=== PATIENT | female | born 1935 | race Caucasian/White ===

== ENCOUNTER → 2016-09-26 | Outpatient (CLI) | payer OTHER, BC ==
[~2016-09-26] MED LIST: ACETAMINOPHEN325 M1 PO; ACYCLOVIR 400400 MG PO; ADVAIR 250-501 EACH INH; ALLOPURINOL 10100 M1 PO; ALLOPURINOL 30300 M1 PO; ASPIRIN325 PO; AUGMENTIN 875875 MG PO; CODITUSS DM SY473 ML PO; COZAAR 25 MG TA25 M1 PO; DEXAMETHASONE4 MG PO; DILTIAZEM 24HR180 M1 PO; MUCINEX600 MG PO; MULTI VITAMIN1 EACH PO; OMEGA 3 1,0001 EACH PO; PRAVASTATIN SOD20 MG PO; PREDNISONE 10 M10 M1 PO; PROAIR HFA8.5 GM INH; RESTORIL7.5 MG PO; REVLIMID25 MG PO; TESSALON PERLE100 MG PO; TOPROL XL25 MG PO; VALSARTAN-HCTZ1 EAC3 PO; VITAMIN B12-FO1 EAC1 PO; VITAMIN D31000 UNIT PO; VITAMINC500 PO
== END ==
LOC: RAD 10:54
DX: C90.00 Multiple myeloma not having achieved remission (principal)

== ENCOUNTER → 2016-12-27 | Outpatient (CLI) | payer OTHER, BC | LOC: ULTRA 13:40 | DX: C90.00 Multiple myeloma not having achieved remission (principal) ==

== ENCOUNTER 2017-03-03 12:11 | Inpatient (IN) | payer OTHER, BC ==
[~2017-03-03] VITALS: Ht 167.6 cm; Wt 46.3 kg
--- NOTE | ~2017-03-03 | EEG ---
[facility] [place] [address] ELECTROENCEPHALOGRAM Name: LUIS DANIEL THOMAS Room #: 362-P [facility] IN M.R.#: [id number] Admission: 03/03/17 Attend Phys: Lucien Curtis Discharge: 03/05/17 Date of : 35 Report #: [id number] THIS REPORT FOR: //name// CC: Caitlyn Robledo DATE OF SERVICE: 03/04/2017 This patient is being evaluated for altered mental status. EEG was done by placing the electrodes by standard 10/20 system of electrode placement. Both referential and sequential montages were used for recording. Background activity in this patient's EEG is about 9-10 Hz and 40 microvolt. Photic stimulation is unremarkable. This patient goes to sleep that is associated with bilateral slowing and vertex sharp waves on both sides. Throughout the record, no active epileptiform activity was noticed. IMPRESSION: This patient's EEG demonstrate mild intermixed slowing. That is a nonspecific abnormality, which can occur with drowsiness, dementia, effect of psychotropic medication, etc. Clinical correlation is recommended. Thank you very much for this referral. <ELECTRONICALLY SIGNED> By: David Carpenter MD 03/11/17 1727 0744 0815 David Carpenter MD /nt
--- NOTE | ~2017-03-03 | EKG ---
[address] [address] ELECTROCARDIOGRAM REPORT Name: LUIS DANIEL THOMAS Room #: 362-P ADM IN M.R.#: [id number] Admission: 03/03/17 Attend Phys: Willam Robledo MD Discharge: Date of : 35 Report #: [id number] THIS REPORT FOR: //name// 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
--- NOTE | ~2017-03-03 | HC ---
[facility] [place] [address] CONSULTATION Name: LUIS DANIEL THOMAS Room #: 362-P ADM IN M.R.#: [id number] Admission: 03/03/17 Attend Phys: Willam Robledo MD Discharge: Date of : 35 Report #: [id number] THIS REPORT FOR: //name// CC: Caitlyn Robledo DATE OF SERVICE: 03/04/2017 HISTORY OF PRESENT ILLNESS: The patient is an 81-year-old female with history of multiple myeloma, 5 prior CVAs, some dementia, nevertheless still living at home in the community with her daughter checking in on her daily. She was noted to have worsening unsteadiness, was admitted and noted to have a recent subacute infarct medial left occipital area. She has had a functional decline and has noted balance issues per the daughter. She was seen by Hematology with her multiple myeloma and the plan is to hold any chemotherapy for now. We are seeing her in rehabilitation medicine consultation. PAST MEDICAL HISTORY: Includes multiple myeloma, hypertension, dementia, recent urinary tract infections, spinal stenosis, CVA/TIA x 5. She is noted to have back pain and apparently is to have a facet injection and followed with the pain clinic. She has history of cataracts, tonsillectomy. ALLERGIES: No known drug allergies. MEDICATIONS: Please see the full medication listing. HABITS: Tobacco: Less than half pack per day, quit greater than a year ago. No history of alcohol abuse. SOCIAL HISTORY: House, alone. Daughter checks in on her daily. She does have a cane, but she does not typically use. Daughter is considering getting a leave of absence in order to be more closely involved with the patient at home. REVIEW OF SYSTEMS: Did not offer any current complaints of chest pain, shortness of breath or abdominal discomfort. PHYSICAL EXAMINATION: GENERAL: An 81-year-old right-handed -Dominican female in no obvious distress. VITAL SIGNS: Last recorded temperature 97.9, pulse 63, respirations 20, blood pressure 101/50. The patient is alert, pleasant. HEENT: Appeared to be benign. NEUROLOGIC: Cranial nerves grossly intact. Facies are symmetric. No obvious nystagmus. EXTREMITIES: She has functional range of motion of both [place] [address] CONSULTATION Name: LUIS DANIEL THOMAS Room #: 362-P [facility] IN .R.#: [id number] Admission: 03/03/17 Attend Phys: Willam Robledo MD Discharge: Date of : 35 Report #: [id number] may have some mild decreased [id number] left upper extremity. I would grade her strength at 4 to 4-/5. Lower extremities, no focal calf swelling. Strength is probably a grade 4 to 4-. She did fairly well with [id number]. ASSESSMENT: An 81-year-old right-handed female with the following problems: 1. Recent subacute infarct, left medial occipital. 2. History of 5 prior TIAs versus CVAs. 3. Multiple myeloma. 4. History of premorbid dementia, nevertheless living in the community. 5. Chronic kidney disease. 6. History of chronic low back pain with extensive degenerative arthritis and outpatient followup with pain management facet injection pending insurance approval. 7. Thrombocytopenia. 8. History of some chronic home oxygen use. 9. Recent admissions for acute mental status secondary to UTI and dehydration. PLAN: Therapy evaluations are underway. We will be glad to follow regarding rehab therapy needs as she further medically stabilizes. Thank you for asking us to assist in this patient's care. By: [id number] [id number] Tony Gtz MD /PMT
[~2017-03-03 12:11] MED LIST changes: +ARICEPT 5 MG TAB5 MG PO; +DEXAMETHASONE 44 M1 PO; +EFFEXOR XR37.5 MG PO; +FISH OIL 1,001000 M2 PO; +KEFLEX500 M1 PO; +LIPITOR 20 MG T20 M1 PO; +METOPROLOL SUCC50 MG PO; +OXYCODONE-ACET1 EACH PO; +PERCOCET PO; +PROAIR HFA8.5 GM NASAL; +REMERON15 MG PO; +VOLTAREN GEL 1100 G1 TOP; +ZOMETA4 MG/5 ML IV; +ZYPREXA2.5 MG PO
[2017-03-03 12:19] VITALS: BP 96/68
[2017-03-03 12:36] LABS: MCHC 31.7 g/dL (28.0-37.0); WBC 5.1 thou/uL (4.0-11.0)
[2017-03-03 12:38] LABS: HEMATOCRIT 31.9 % (37.0-47.0); HEMOGLOBIN 10.1 gm/dL (12.0-15.0); MCH 28.6 pg (26.0-34.0); MCV 90.2 fL (80.0-100.0); RBC 3.54 mil/uL (4.20-5.00); RDW 15.5 % (10.5-14.5)
[2017-03-03 12:40] LABS: MANUAL DIFF YES
[2017-03-03 12:44] LABS: CALCIUM 9.4 mg/dL (8.5-10.1); CREATININE 1.3 mg/dL (0.6-1.0); POTASSIUM 3.4 mmol/L (3.5-5.1)
[2017-03-03 13:25] LABS: ABSOLUTE NEUTROPHILS 3.2 thou/uL (1.4-8.2); TOTAL CELL COUNT 100
[2017-03-03 13:26] LABS: PLATELET COUNT 78 thou/uL (150-400)
[2017-03-03 13:43] LABS: URINE BILIRUBIN NEGATIVE (Negative); URINE BLOOD TRACE (Negative); URINE COLOR YELLOW; URINE GLUCOSE-RANDOM* NEGATIVE (Negative); URINE KETONES NEGATIVE (Negative); URINE NITRITE NEGATIVE (Negative); URINE PROTEIN (DIPSTICK) 2+ (Negative); URINE SPECIFIC GRAVITY 1.025 (1.003-1.035); URINE UROBILINOGEN 0.2 E.U./dl (0.2-1.0)
[2017-03-03 13:48] LABS: BACTERIA 1-9 Few /HPF (None Seen); SQUAMOUS 0-3 Few /LPF (0-3); URINE RBC 0-2 Rare /HPF (0-2); URINE WBC 0-5 Rare /HPF (0-5)
[2017-03-03 13:49] LABS: AMORPHOUS URATES Few /LPF (None Seen); CASTS None Seen /LPF (None Seen)
[2017-03-03 16:25] VITALS: BP 90/65
[2017-03-03 17:17] VITALS: BP 89/53
[2017-03-03 17:59] LABS: CHOLESTEROL 179 mg/dL (<200); HDL CHOLESTEROL 74 mg/dL (>40); LDL CHOLESTEROL 81 mg/dL (<100); TC:HDL 2.4 Ratio (Not establshd); TRIGLYCERIDE 123 mg/dL (<150); VLDL 25 mg/dL (<40)
[2017-03-03 18:30] VITALS: BP 86/61
[2017-03-03 20:00] VITALS: BP 95/69
[2017-03-04 00:25] VITALS: BP 81/53
[2017-03-04 04:00] VITALS: BP 108/71
[2017-03-04 04:06] LABS: GLYCOHEMOGLOBIN (HGB A1C) 4.9 % (4.8-5.6)
[2017-03-04 05:53] LABS: HEMOGLOBIN 8.2 gm/dL (12.0-15.0); MCH 28.5 pg (26.0-34.0); MCHC 31.5 g/dL (28.0-37.0); MCV 90.5 fL (80.0-100.0); RBC 2.87 mil/uL (4.20-5.00); RDW 15.7 % (10.5-14.5); WBC 3.6 thou/uL (4.0-11.0)
[2017-03-04 05:58] LABS: MANUAL DIFF YES
[2017-03-04 05:59] LABS: PLATELET COUNT 57 thou/uL (150-400)
[2017-03-04 06:14] LABS: CALCIUM 8.2 mg/dL (8.5-10.1); CREATININE 1.1 mg/dL (0.6-1.0); MAGNESIUM 1.7 mg/dL (1.8-2.4); POTASSIUM 3.7 mmol/L (3.5-5.1)
[2017-03-04 07:51] VITALS: BP 101/50
[2017-03-04 08:18] LABS: ABSOLUTE NEUTROPHILS 3.4 thou/uL (1.4-8.2); ANISOCYTOSIS 1+; HYPOCHROMASIA 1+; OVALOCYTES OCCASIONAL; POIKILOCYTOSIS SLIGHT; TOTAL CELL COUNT 100
[2017-03-04 08:19] LABS: LARGE PLATELETS OCCASIONAL
[2017-03-04 10:41] LABS: FOLIC ACID 12.3 ng/mL (8.6-58.9)
[2017-03-04 11:43] VITALS: BP 91/62
[2017-03-04 15:36] VITALS: BP 104/67
[2017-03-04 20:00] VITALS: BP 102/66
[2017-03-05 03:50] VITALS: BP 100/70
[2017-03-05 05:48] LABS: CALCIUM 7.9 mg/dL (8.5-10.1); MAGNESIUM 1.8 mg/dL (1.8-2.4); POTASSIUM 3.6 mmol/L (3.5-5.1)
[2017-03-05 08:13] VITALS: BP 107/67
[2017-03-05] MEDS ORDERED: CLOPIDOGREL75 MG PO (09:29)
[2017-03-05] MEDS ORDERED: ATORVASTATIN CA10 MG PO (09:30)
[2017-03-05 11:56] VITALS: BP 95/63
== END 2017-03-05 15:04 | DRG 65 ==
LOC: ER 12:11 → 3W 13:53 → EROBS 13:53 → 3W 18:16
PROVIDERS: Emergency Medicine; Nurse Practitioner; Psychiatry & Neurology Neurology
DX: I63.9 Cerebral infarction, unspecified (principal); C90.00 Multiple myeloma not having achieved remission; E44.0 Moderate protein-calorie malnutrition; Z68.1 Body mass index [BMI] 19.9 or less, adult; F03.90 Unspecified dementia, unspecified severity, without behavioral disturbance, psychotic disturbance, mood disturbance, and anxiety; D69.6 Thrombocytopenia, unspecified; D64.9 Anemia, unspecified; N18.9 Chronic kidney disease, unspecified; M19.90 Unspecified osteoarthritis, unspecified site; M51.16 Intervertebral disc disorders with radiculopathy, lumbar region; E78.5 Hyperlipidemia, unspecified; I95.9 Hypotension, unspecified; R62.7 Adult failure to thrive; E87.6 Hypokalemia; M54.5 Low back pain; Z99.81 Dependence on supplemental oxygen; Z87.891 Personal history of nicotine dependence; Z86.73 Personal history of transient ischemic attack (TIA), and cerebral infarction without residual deficits
CPT/HCPCS: 10779

== ENCOUNTER 2017-03-05 13:39 | Inpatient (IN) | payer OTHER, BC ==
[~2017-03-05] VITALS: Ht 165.1 cm; Wt 44.0 kg
--- NOTE | ~2017-03-05 | H ---
[facility] [place] [address] HISTORY AND PHYSICAL Name: LUIS DANIEL THOMAS Room #: 503-P ADM IN M.R.#: [id number] Admission: 03/05/17 Attend Phys: Tony Gtz MD Discharge: Date of : 35 Report #: [id number] THIS REPORT FOR: //name// CC: Caitlyn Gtz DATE OF SERVICE: 03/05/2017 HISTORY OF PRESENT ILLNESS: The patient is an 81-year-old -Italian female with history of multiple myeloma, prior CVA, some premorbid dementia, nevertheless still living at home in the community with her daughter checking in on her daily. She was noted to have worsening unsteadiness and was admitted and noted to have a recent subacute infarct medial left occipital area. She was noted to have a significant partial decline with balance issues. During her hospitalization, she was seen by Hematology with her multiple myeloma and the plan was to hold off on any chemotherapy. With her significant functional decline, she was admitted for acute in-hospital inpatient rehabilitation. PAST MEDICAL HISTORY: Includes multiple myeloma, hypertension. There is a note of dementia, recent urinary tract infections, spinal stenosis, CVA with TIA x 5. She is noted to have back pain and is apparently to have a facet injection to be followed up with the pain clinic as an outpatient. She has history of cataracts and tonsillectomy. PAST SURGICAL HISTORY: As noted above. ALLERGIES: No known drug allergies. MEDICATIONS: Please see the full medication listing. HABITS: Tobacco, less than half pack per day, quit greater than a year ago. No history of alcohol abuse. SOCIAL HISTORY: Lives in a house alone. Daughter has been checking in on her daily. The patient does have a cane, but does not typically use. Daughter is considering getting a leave of absence in order to be more closely involved with the patient at home. REVIEW OF SYSTEMS: No current complaints of chest pain, shortness of breath, abdominal discomfort. PHYSICAL EXAMINATION: GENERAL: An 81-year-old handed -Italian female in no obvious distress. VITAL SIGNS: Last recorded temperature 36.3, pulse 78, respirations 17, blood pressure 103/70. The patient was seen earlier. She was sleepy. She would arouse. [facility] [address] [place] [address] HISTORY AND PHYSICAL Name: LUIS DANIEL THOMAS Room #: [facility] IN .R.#: [id number] Admission: 03/05/17 Attend Phys: Tony Gtz MD Discharge: Date of : 35 Report #: [id number] HEENT: Appeared to be benign. Facies appeared symmetric. CHEST: Sounded clear to auscultation. CARDIOVASCULAR: Regular rate and rhythm. ABDOMEN: Bowel sounds positive, nontender. GENITOURINARY AND RECTAL: Deferred. NEUROLOGIC: Functional range of motion of both upper extremities with again some mild decreased coordination. Left upper extremity: Strength of the upper body is 4-/5. Lower extremities: No focal calf swelling with strength probably grade 4 to 4-/5. In therapies: She has been contact guard for basic transfers and ambulation and has needed some assistance for ADLs. Decreased balance has been noted. IMPRESSION: An 81-year-old -Italian female with following problem list: 1. Recent subacute infarct left medial occipital. 2. History of 5 prior TIAs versus CVAs. 3. Multiple myeloma. 4. History of premorbid dementia, nevertheless living in the community. 5. Chronic kidney disease. 6. History of chronic low back pain with extensive degenerative arthritis and outpatient followup with pain management, facet injection, pending insurance approval. 7. Thrombocytopenia. 8. History of some chronic home oxygen use. 9. Balance issues with some decreased coordination and functional mobility and ADL deficits. PLAN: The patient is admitted for acute in-hospital inpatient rehabilitation. From a post-admission physician evaluation perspective, there are no relevant changes since the preadmission screening. Please see the above review of prior and current medical and functional conditions and comorbidities. Please see the patient's previous and current functional status. As far as risk of complications, the patient has multiple medical comorbidities as noted above. Initial plan of care involves the interdisciplinary acute inpatient rehabilitation program of maximizing the patient's functional independence, so that she can hopefully return back to her prior living situation. Measurable functional goals would be for her to become modified independent with transfers, mobility and ambulation. She has been using a walker, although premorbidly she was not typically using any gait aids. Goal would be for her to first be modified independent at walker level. Goal would also be to improve ADL independence as well as cognitive issues to return back to her prior living situation, so that she can return back to her home setting. Prognosis is reasonably good with estimated length of stay probably at least 7-[address] [address] HISTORY AND PHYSICAL Name: LUIS DANIEL THOMAS Room #: 503-P [facility] IN M.R.#: [id number] Admission: 03/05/17 Attend Phys: Tony Gtz MD Discharge: Date of : 35 Report #: [id number] potentially longer if warranted. Potential barriers would include the multiple medical comorbidities and decreased functional status. <ELECTRONICALLY SIGNED> By: Tony Gtz MD 03/14/17 1108 1032 1132 Tony Gtz MD /[facility]
--- NOTE | ~2017-03-05 | PLAN ---
[facility] [place] [address] REHAB UNIT PLAN OF CARE Name: LUIS DANIEL THOMAS Room #: 503-P ADM IN M.R.#: [id number] Admission: 03/05/17 Attend Phys: Tony Gtz MD Discharge: Date of : 35 Report #: [id number] THIS REPORT FOR: //name// CC: Caitlyn Gtz DATE OF SERVICE: 03/07/2017 PROGRESS NOTE/OVERALL PLAN OF CARE SUBJECTIVE: The patient is seen back today in followup. She is in no distress. Temperature 98.4, pulse 86, respirations 20, blood pressure 102/69. No focal calf swelling. Transfers are contact guard with gait contact guard 200 feet with a front-wheeled walker. She is going up and down 4 steps contact guard. In occupational therapy, she is max assist for lower body dressing. ASSESSMENT: 1. Subacute infarct left medial occipital. 2. History of 5 prior TIAs versus CVAs. 3. Multiple myeloma. 4. History of premorbid dementia. 5. Chronic kidney disease. 6. History of chronic low back pain with extensive degenerative arthritis. Followup pain clinic for said injection pending insurance approval. 7. Thrombocytopenia. 8. History of chronic home O2 oxygen use. PLAN: The overall plan of care is based on the preadmission screen, post-admission physician evaluation and information garnered from therapy assessments. 1. Estimated length of stay is probably at least 7-10 days, pending progress. 2. Medical prognosis is reasonably good. 3. Anticipated interventions includes the interdisciplinary acute inpatient rehabilitation program with the goal of maximizing the patient's functional independence, so she can hopefully return back to her prior living situation. 4. Anticipated functional outcomes would be for the patient to become modified independent with transfers, mobility issues, utilizing the walker. She will also be assessed further regarding speech therapy and cognitive deficits. It is anticipated that she will become independent with basic mobility and ADLs at the walker level and improve with her cognition, so she can return back to the home setting. 5. Discharge destination would be back to the home setting where she lives in a house alone. There is an involved daughter. 6. Expected therapy by discipline includes PT, OT and speech 1 [place] [address] REHAB UNIT PLAN OF CARE Name: LUIS DANIEL THOMAS Room #: 503-P [facility] IN [facility].#: [id number] Admission: 03/05/17 Attend Phys: Tony Gtz MD Discharge: Date of : 35 Report #: [id number] each five days a week throughout the duration of the acute inpatient rehabilitation stay. <ELECTRONICALLY SIGNED> By: Tony Gtz MD 03/14/17 1108 0916 1127 Tony Gtz MD /PMT
--- NOTE | ~2017-03-05 | HC ---
[facility] [place] [address] CONSULTATION Name: LUIS DANIEL THOMAS Room #: 503-P ADM IN M.R.#: [id number] Admission: 03/05/17 Attend Phys: Tony Gtz MD Discharge: Date of : 35 Report #: [id number] THIS REPORT FOR: //name// CC: Caitlyn Gtz DATE OF SERVICE: 03/08/2017 NEUROBEHAVIORAL STATUS EXAM ATTENDING PHYSICIAN: Tony Gtz MD PUBLICATION DISTRIBUTOR: Wilfrido Mack, PhD CLINICAL PRESENTATION: The patient is an 81-year-old -Iranian female admitted to the rehabilitation unit at [facility] with a recent subacute infarction of the left medial occipital lobe. She has a history of prior TIAs/CVAs. Her medical condition includes multiple myeloma, history of premorbid dementia, chronic kidney disease, history of chronic low back pain with extensive degenerative arthritis and outpatient pain management, thrombocytopenia, history of chronic home oxygen use and balance issues with decreased coordination and functional mobility and ADL deficits. A complete description of her medical condition and history can be found in her medical record. Neuropsychological consultation was requested to provide assistance in the assessment of cognitive and emotional status and to provide services as needed. Prior to this most recent admission, the patient was living in a house alone. She has a daughter that has been checking on her daily. The patient reports shortness of breath is the main reason for her hospitalization. She has difficulty with acknowledging the severity of cognitive deficits. She is not completely certain of the condition for which she was admitted for treatment. She does not report a treatment for depression or anxiety. She denies a history of alcohol/drug abuse. The patient indicates that she was driving and independent with basic and instrumental activities of daily living prior to her admission. She currently reports difficulty with appetite, energy level with fatigue. She does not report difficulty with concentration or word finding. Subtle difficulty with memory is acknowledged. Her performance on the MMSE 2 brief version was extremely low with a raw score of 11 of 16. The MMSE 2 standard version was extremely low with a raw score of 17 of 30. The patient was 3/3 for initial registration, 3/5 for orientation to time and 5/[address]. She was 0/3 for immediate recall of 3 items after a brief time delay and distraction. Her performance on the MMSE 2 standard version was extremely low with a raw [facility] [address] [place] [address] CONSULTATION Name: LUIS DANIEL THOMAS Room #: 503-P [facility] IN .R.#: [id number] Admission: 03/05/17 Attend Phys: Tony Gtz MD Discharge: Date of : 35 Report #: [id number] score 19 of 30. She was 0/5 for serial sevens, 2/2 for naming, 1/1 for repetition. She was 3/3 for auditory comprehension. She could read and follow a single command. The patient was unable to copy a simple geometric design. She could write a sentence. The patient was unable to draw a clock and set the hands at a designated time. Severe deficits are noted in verbal fluency. Letter fluency was a raw score of 3, which is extremely low. Category fluency was a raw score of 15, which is extremely low. Total verbal fluency was a raw score of 18, which is extremely poor performance. The patient is having difficulty with thought organization and verbal expression. Her initiation will be reduced in higher level executive functioning impaired. DIAGNOSTIC IMPRESSION: Major neurocognitive disorder (dementia), unspecified, without behavior disorder-moderate severity. RECOMMENDATIONS: The patient will require 24-hour care to maintain safety. Deficits with immediate recall, sustained concentration and higher level executive functioning place her at a great safety risk. A continued treatment program for dementia that includes the use of medication to support cognition. Her daughter will most likely need to remain with the patient to provide the adequate services that are necessary. The patient is lacking insight into the severity of her deficits, therefore, placing her at increased safety risk. Thank you very much for allowing me to provide the consultation on this patient. By: 1402 1538 Wilfrido Mack, PhD /nt
[~2017-03-05 13:39] MED LIST changes: +ATORVASTATIN CA10 MG PO; +CLOPIDOGREL75 MG PO
[2017-03-05 15:25] VITALS: BP 123/79
[2017-03-05 15:33] VITALS: BP 123/79
[2017-03-05 19:36] VITALS: BP 103/70
[2017-03-06 08:30] VITALS: BP 102/69
[2017-03-06 19:35] VITALS: BP 98/54
[2017-03-07 05:46] LABS: HEMATOCRIT 24.6 % (37.0-47.0); HEMOGLOBIN 7.9 gm/dL (12.0-15.0); MCH 28.7 pg (26.0-34.0); MCV 89.6 fL (80.0-100.0); RBC 2.74 mil/uL (4.20-5.00); RDW 15.7 % (10.5-14.5); WBC 3.2 thou/uL (4.0-11.0)
[2017-03-07 06:01] LABS: CALCIUM 7.5 mg/dL (8.5-10.1); CREATININE 0.9 mg/dL (0.6-1.0)
[2017-03-07 06:04] LABS: POTASSIUM 2.9 mmol/L (3.5-5.1)
[2017-03-07 07:15] VITALS: BP 110/59
[2017-03-07 19:28] VITALS: BP 117/75
[2017-03-08 09:23] VITALS: BP 114/79
[2017-03-08 19:10] VITALS: BP 105/70
[2017-03-09 08:00] VITALS: BP 100/70
[2017-03-09 19:40] VITALS: BP 108/77
[2017-03-10 07:30] VITALS: BP 113/84
[2017-03-10 09:53] LABS: HEMATOCRIT 29.2 % (37.0-47.0); HEMOGLOBIN 9.1 gm/dL (12.0-15.0); MCH 28.8 pg (26.0-34.0); MCHC 31.3 g/dL (28.0-37.0); MCV 92.2 fL (80.0-100.0); RBC 3.17 mil/uL (4.20-5.00); RDW 17.3 % (10.5-14.5); WBC 3.5 thou/uL (4.0-11.0)
[2017-03-10 09:54] LABS: MANUAL DIFF YES
[2017-03-10 10:02] LABS: ALBUMIN 2.9 g/dL (3.4-5.0); CREATININE 0.8 mg/dL (0.6-1.0); MAGNESIUM 1.4 mg/dL (1.8-2.4); POTASSIUM 3.1 mmol/L (3.5-5.1); TOTAL BILIRUBIN 0.9 mg/dL (<0.1-1.0); TOTAL PROTEIN 5.7 g/dL (6.4-8.2)
[2017-03-10 10:29] LABS: ABSOLUTE NEUTROPHILS 2.4 thou/uL (1.4-8.2); ANISOCYTOSIS 1+; PLATELET COUNT 94 thou/uL (150-400); PLATELET ESTIMATE DECREASED; TOTAL CELL COUNT 100
[2017-03-10 20:00] VITALS: BP 97/69
[2017-03-11 06:31] LABS: CALCIUM 7.9 mg/dL (8.5-10.1); CREATININE 0.8 mg/dL (0.6-1.0); MAGNESIUM 1.5 mg/dL (1.8-2.4); POTASSIUM 3.9 mmol/L (3.5-5.1)
[2017-03-11 08:00] VITALS: BP 116/76
[2017-03-11 20:00] VITALS: BP 86/62
[2017-03-12 07:15] VITALS: BP 97/68
[2017-03-12 19:40] VITALS: BP 85/55
[2017-03-13 05:14] LABS: HEMATOCRIT 24.7 % (37.0-47.0); HEMOGLOBIN 7.8 gm/dL (12.0-15.0); MCH 29.1 pg (26.0-34.0); MCHC 31.7 g/dL (28.0-37.0); MCV 91.9 fL (80.0-100.0); RBC 2.69 mil/uL (4.20-5.00); RDW 18.3 % (10.5-14.5); WBC 3.7 thou/uL (4.0-11.0)
[2017-03-13 05:17] LABS: CALCIUM 8.3 mg/dL (8.5-10.1); CREATININE 0.9 mg/dL (0.6-1.0); MAGNESIUM 1.7 mg/dL (1.8-2.4); POTASSIUM 3.3 mmol/L (3.5-5.1)
[2017-03-13 08:00] VITALS: BP 95/66
[2017-03-13 19:45] VITALS: BP 92/63
[2017-03-14 06:11] LABS: HEMATOCRIT 23.9 % (37.0-47.0); HEMOGLOBIN 7.7 gm/dL (12.0-15.0); MCH 29.6 pg (26.0-34.0); MCHC 32.3 g/dL (28.0-37.0); MCV 91.6 fL (80.0-100.0); PLATELET COUNT 96 thou/uL (150-400); RBC 2.61 mil/uL (4.20-5.00); RDW 19.3 % (10.5-14.5); WBC 3.1 thou/uL (4.0-11.0)
[2017-03-14 06:18] LABS: MANUAL DIFF YES
[2017-03-14 06:23] LABS: CALCIUM 8.6 mg/dL (8.5-10.1); CREATININE 0.9 mg/dL (0.6-1.0); MAGNESIUM 1.7 mg/dL (1.8-2.4); POTASSIUM 4.1 mmol/L (3.5-5.1)
[2017-03-14 08:13] LABS: ABSOLUTE NEUTROPHILS 2.4 thou/uL (1.4-8.2); TOTAL CELL COUNT 100
[2017-03-14 08:14] LABS: ANISOCYTOSIS 2+; OVALOCYTES 1+
[2017-03-14 08:15] LABS: POLYCHROMASIA OCCASIONAL
[2017-03-14 09:00] VITALS: BP 96/67
[2017-03-14 09:16] LABS: % SATURATION 17 % (20-39); IRON 41 ug/dL (50-170); TIBC 242 ug/dL (250-450); UIBC 201 ug/dL
[2017-03-14 19:18] VITALS: BP 90/63
[2017-03-15 05:34] LABS: ABSOLUTE RETIC COUNT 0.0605 10^6/uL; HEMATOCRIT 22.6 % (37.0-47.0); HEMOGLOBIN 7.2 gm/dL (12.0-15.0); MCH 29.8 pg (26.0-34.0); MCV 93.2 fL (80.0-100.0); OBSERVED RETIC COUNT 2.49 % (0.6-2.6); RBC 2.43 mil/uL (4.20-5.00); RDW 21.2 % (10.5-14.5); WBC 4.4 thou/uL (4.0-11.0)
[2017-03-15 08:35] VITALS: BP 96/60
[2017-03-15 19:46] VITALS: BP 95/68
[2017-03-16 02:38] LABS: HEMATOCRIT 23.3 % (37.0-47.0); HEMOGLOBIN 7.3 gm/dL (12.0-15.0); MCH 29.5 pg (26.0-34.0); MCHC 31.2 g/dL (28.0-37.0); MCV 94.7 fL (80.0-100.0); PLATELET COUNT 91 thou/uL (150-400); RBC 2.46 mil/uL (4.20-5.00); RDW 22.2 % (10.5-14.5); WBC 4.9 thou/uL (4.0-11.0)
[2017-03-16 02:42] LABS: MANUAL DIFF YES
[2017-03-16 03:35] LABS: ABSOLUTE NEUTROPHILS 3.2 thou/uL (1.4-8.2); ANISOCYTOSIS 3+; MACROCYTES 1+; NUCLEATED RBCS 8 /100WBC; POLYCHROMASIA OCCASIONAL; TOTAL CELL COUNT 100
[2017-03-16 08:00] VITALS: BP 113/79
[2017-03-16 19:36] VITALS: BP 90/61
[2017-03-17 08:00] VITALS: BP 109/76
[2017-03-17] MEDS ORDERED: MAGOX 400400 MG PO (10:55)
[2017-03-17] MEDS ORDERED: IRON325 PO (10:55)
[2017-03-17] MEDS ORDERED: MEGESTROL40 MG/1 M1 PO (10:55)
[2017-03-17] MEDS ORDERED: PROCRIT20000 UNIT SUBQ (10:55)
[2017-03-17] MEDS ORDERED: OXYBUTYNIN 5 MG5 M2 PO (10:55)
[2017-03-17] MEDS ORDERED: METOPROLOL SUCC25 M1 PO ×2 (10:55→11:59)
[2017-03-17] MEDS ORDERED: COLACE100 MG PO (10:55)
[2017-03-17] MEDS ORDERED: PROTONIX40 M1 PO (10:55)
[2017-03-17 14:12] VITALS: BP 109/76
[2017-03-17 15:29] VITALS: BP 109/76
[2017-03-17 20:40] VITALS: BP 91/63
[2017-03-18 04:28] LABS: ALBUMIN 2.4 g/dL (3.4-5.0); CALCIUM 8.4 mg/dL (8.5-10.1); MAGNESIUM 1.6 mg/dL (1.8-2.4); POTASSIUM 3.4 mmol/L (3.5-5.1); TOTAL BILIRUBIN 0.7 mg/dL (<0.1-1.0); TOTAL PROTEIN 4.6 g/dL (6.4-8.2)
[2017-03-18 07:04] VITALS: BP 105/69
== END 2017-03-18 13:23 | disposition home health service (06) | DRG 64 ==
LOC: ENTRNSPT 03-18 12:45 → EDTRNSPTSTS 03-18 12:47
PROVIDERS: Internal Medicine Endocrinology, Diabetes & Metabolism; Internal Medicine Hematology & Oncology; Nurse Practitioner; Physical Medicine & Rehabilitation; Registered Nurse
DX: I63.9 Cerebral infarction, unspecified (principal); E43 Unspecified severe protein-calorie malnutrition; C90.00 Multiple myeloma not having achieved remission; Z68.1 Body mass index [BMI] 19.9 or less, adult; I12.0 Hypertensive chronic kidney disease with stage 5 chronic kidney disease or end stage renal disease; F03.90 Unspecified dementia, unspecified severity, without behavioral disturbance, psychotic disturbance, mood disturbance, and anxiety; N18.9 Chronic kidney disease, unspecified; M54.5 Low back pain; G89.29 Other chronic pain; M19.90 Unspecified osteoarthritis, unspecified site; D69.6 Thrombocytopenia, unspecified; D75.9 Disease of blood and blood-forming organs, unspecified; R32 Unspecified urinary incontinence; E87.6 Hypokalemia; E83.42 Hypomagnesemia; D64.9 Anemia, unspecified; Z79.82 Long term (current) use of aspirin; Z79.899 Other long term (current) drug therapy
CPT/HCPCS: 10092; 10112

== ENCOUNTER 2017-06-20 10:07 | Inpatient (IN) | payer OTHER ==
[~2017-06-20] VITALS: Ht 165.1 cm; Wt 45.4 kg
--- NOTE | ~2017-06-20 | 2DMMODE ---
[facility] [place] [address] 2 D/M-MODE ECHOCARDIOGRAM Name: LUIS DANIEL THOMAS Room #: 206-P [facility] IN ..#: [id number] Admission: 06/20/17 Attend Phys: Jordan Hein MD Discharge: Date of : 35 Date of Service: 06/20/17 1529 Report #: [id number] THIS REPORT FOR: //name// APPROVED REPORT Study performed: 06/20/2017 13:39:36 EXAM: Comprehensive 2D, Doppler, and color-flow Echocardiogram Patient Location: ER Status: routine BSA: 1.52 HR: 88 bpm BP: 119/89 mmHg Other Information Study Quality: Adequate Indications Limited follow up echo for abnormal EKG and tachycardia. Hx: CVA, aortic stenosis (medical chart states bicuspid AoV) 2D Dimensions LVOT Diam: 19.79 (18-24mm) Ascending Ao: 47.79 (22-36mm) Aortic Root: 37.49 mm Aortic Valve AoV Peak Santos.: 2.73 m/s AO Peak Gr.: 29.81 mmHg AO Mean Gr.: 17.72 mmHg AO V2 Mean: 2.03 m/s AO V2 VTI: 46.78 cm AI Vmax: 5.56 m/s AI Valley: 3.30 m/s2 AI PHT: 488.15 ms Tricuspid Valve TR Peak Santos.: 2.96 m/s RAP Estimate: 5.00 mmHg TR Peak Gr.: 35.13 mmHg PA Pressure: 40.00 mmHg Left Ventricle LV gradient noted. Peak velocity of 3.2m/s with a peak gradient of 42mmHg and a mean of 25mmHg. Regional wall motion abnormalities are [facility] [address] [place] [address] 2 D/M-MODE ECHOCARDIOGRAM Name: LUIS DANIEL THOMAS Room #: [facility] ADM IN [facility].#: [id number] Admission: 06/20/17 Attend Phys: Jordan Hein MD Discharge: Date of : 35 Date of Service: 06/20/17 1529 Report #: [id number] noted. Severe concentric left ventricular hypertrophy. Left ventricular systolic function is mildly decreased. LVEF is 50%. Hypokinesis involving the base of the inferior wall. Right Ventricle Right ventricular systolic function is mildly reduced. Atria Left atrium is dilated. Right atrium is dilated. Aortic Valve Aortic valve is trileaflet and mildly sclerotic Moderate aortic regurgitation. Mild aortic stenosis. Peak velocity of 2.7m/s with a peak gradient of 30mmHg and a mean of 18mmHg. Mitral Valve Mitral valve leaflets are thickened. Mild to moderate mitral regurgitation. Tricuspid Valve The tricuspid valve is normal in structure. Mild to moderate tricuspid regurgitation. Estimated PAP is 40mmHg. Great Vessels Aortic root is borderline dilated. Ascending aorta is dilated at 4.8cm. IVC is normal in size and collapses >50% with inspiration. Pericardium Small pericardial effusion noted. <Conclusion> Left ventricular systolic function is mildly decreased. Severe concentric left ventricular hypertrophy. LVEF is 50%. Hypokinesis involving the base of the inferior wall. Both atria are dilated. Aortic valve is trileaflet and mildly sclerotic Moderate aortic regurgitation. Mild aortic stenosis. Peak velocity of 2.7m/s with a peak gradient of 30mmHg and a mean of 18mmHg. Mitral valve leaflets are thickened. Mild to moderate mitral regurgitation. Ascending aorta is dilated at 4.8cm. Small pericardial effusion noted. [facility] [address] [place] [id number] 2 D/M-MODE ECHOCARDIOGRAM Name: LUIS DANIEL THOMAS Room #: 206-P [facility] IN ..#: [id number] Admission: 06/20/17 Attend Phys: Jordan Hein MD Discharge: Date of : 35 Date of Service: 06/20/17 1529 Report #: [id number] Echocardiographic appearance suggestive of cardiac amyloid. <ELECTRONICALLY SIGNED> By: Dayday Lane MD, [facility] 06/20/[address] MD, FACC /INF
--- NOTE | ~2017-06-20 | EKG ---
[address] [address] ELECTROCARDIOGRAM REPORT Name: LUIS DANIEL THOMAS Room #: 206-P ADM IN M.R.#: [id number] Admission: 06/20/17 Attend Phys: Jordan Hein MD Discharge: Date of : 35 Report #: [id number] THIS REPORT FOR: //name// [facility] ED Test Date: 2017-06-20 Test Time: 10:18:45 Pat Name: LUIS DANIEL THOMAS Department: Room: 206 Gender: F Mannequin Molder: KATI : 1935 Requested By: Denny Lindsey Order Number: [id number] MD: Dayday Lane Measurements Intervals [place] Rate: 132 P: 0 MT: 101 QRS: 142 QRSD: 136 T: -17 QT: 345 QTc: 511 Interpretive Statements Probable atrial flutter with 2-1 AV conduction Right bundle branch block Rightward axis Compared to ECG 03/03/2017 12:27:28 Atrial flutter has replaced atrial fibrillation right bundle branch block is now present Electronically Signed On 06-21-2017 12:56:23 COOLING ROOM ATTENDANT by Dayday Lane [email or web address] <ELECTRONICALLY SIGNED> By: Dayday Lane MD, [facility] 06/21/[address] MD, [facility] /EPI
--- NOTE | ~2017-06-20 | EKG ---
[place] [address] [place] [address] ELECTROCARDIOGRAM REPORT Name: LUIS DANIEL THOMAS Room #: 206-P ADM IN M.R.#: [id number] Admission: 06/20/17 Attend Phys: Jordan Hein MD Discharge: Date of : 35 Report #: [id number] THIS REPORT FOR: //name// [facility] ED Test Date: 2017-06-20 Test Time: 11:45:22 Pat Name: LUIS DANIEL THOMAS Department: Room: 206 Gender: F Lens Molder: KF : 1935 Requested By: Denny Lindsey Order Number: [id number] MD: Dayday Lane Measurements Intervals [place] Rate: 95 P: -87 MI: 189 QRS: 128 QRSD: 143 T: 2 QT: 383 QTc: 482 Interpretive Statements Sinus or ectopic atrial rhythm with first-degree AV block Right bundle branch block Rightward axis Compared to ECG 03/03/2017 12:27:28 Sinus rhythm has replaced probable atrial flutter Electronically Signed On 06-21-2017 12:59:00 BRIDGE INSTRUCTOR [address] [email or web address] <ELECTRONICALLY SIGNED> By: Dayday Lane MD, [facility] 06/21/[address] MD, [facility] /EPI
[~2017-06-20 10:07] MED LIST changes: +ANORO ELLIPTA1 EACH INH; +COLACE100 MG PO; +FLAGYL500 MG PO; +IRON325 PO; +MAGOX 400400 MG PO; +MEGESTROL40 MG/1 M1 PO; +METOPROLOL SUCC25 M1 PO; +OLANZAPINE2.5 MG PO; +OXYBUTYNIN 5 MG5 M2 PO; +PLAVIX 75 MG TA75 M1 PO; +PROCRIT20000 UNIT SUBQ; +PROTONIX40 M1 PO
[2017-06-20 10:14] VITALS: BP 119/89
[2017-06-20 10:26] LABS: ABSOLUTE NEUTROPHILS 2.4 thou/uL (1.4-8.2); BASOPHILS 1.1 % (0.0-2.0); EOSINOPHILS 1.1 % (0.0-3.0); HEMATOCRIT 39.1 % (37.0-47.0); HEMOGLOBIN 12.5 gm/dL (12.0-15.0); LYMPHOCYTES 31.3 % (24.0-44.0); MCH 30.4 pg (26.0-34.0); MCHC 32.1 g/dL (28.0-37.0); MCV 94.8 fL (80.0-100.0); MONOCYTES 11.3 % (1.0-8.0); PLATELET COUNT 124 thou/uL (150-400); POLYS 55.2 % (36.0-66.0); RBC 4.12 mil/uL (4.20-5.00); WBC 4.3 thou/uL (4.0-11.0)
[2017-06-20] MEDS ORDERED: KLOR-CON 1010 MEQ PO (10:30)
[2017-06-20] MEDS ORDERED: CENTRUM SILVER1 EAC4 PO (10:32)
[2017-06-20 10:48] LABS: CALCIUM 9.3 mg/dL (8.5-10.1); CREATININE 1.3 mg/dL (0.6-1.0); POTASSIUM 3.9 mmol/L (3.5-5.1)
[2017-06-20 10:55] LABS: ALBUMIN 3.6 g/dL (3.4-5.0); TOTAL PROTEIN 7.3 g/dL (6.4-8.2)
[2017-06-20 13:08] LABS: URINE BILIRUBIN NEGATIVE (Negative); URINE BLOOD TRACE (Negative); URINE CLARITY CLEAR; URINE COLOR YELLOW; URINE GLUCOSE-RANDOM* NEGATIVE (Negative); URINE KETONES NEGATIVE (Negative); URINE LEUKOCYTES NEGATIVE (Negative); URINE NITRITE NEGATIVE (Negative); URINE PROTEIN (DIPSTICK) TRACE (Negative); URINE UROBILINOGEN 0.2 E.U./dl (0.2-1.0)
[2017-06-20 14:11] VITALS: BP 138/88
[2017-06-20 14:47] VITALS: BP 139/93
[2017-06-20 15:14] VITALS: BP 157/111
[2017-06-20 18:23] VITALS: BP 136/98
[2017-06-20 20:26] VITALS: BP 134/93
[2017-06-21 05:18] VITALS: BP 125/73
[2017-06-21 07:50] VITALS: BP 123/75
[2017-06-21 09:30] LABS: ALBUMIN 3.1 g/dL (3.4-5.0); CALCIUM 8.8 mg/dL (8.5-10.1); CREATININE 1.2 mg/dL (0.6-1.0); MAGNESIUM 1.5 mg/dL (1.8-2.4); POTASSIUM 3.4 mmol/L (3.5-5.1); TOTAL BILIRUBIN 0.8 mg/dL (<0.1-1.0); TOTAL PROTEIN 6.3 g/dL (6.4-8.2)
[2017-06-21 11:31] VITALS: BP 143/75
[2017-06-21 19:37] VITALS: BP 133/94
[2017-06-22 04:49] LABS: HEMATOCRIT 33.3 % (37.0-47.0); HEMOGLOBIN 10.8 gm/dL (12.0-15.0); MCH 30.7 pg (26.0-34.0); MCHC 32.5 g/dL (28.0-37.0); MCV 94.7 fL (80.0-100.0); PLATELET COUNT 109 thou/uL (150-400); RBC 3.52 mil/uL (4.20-5.00); WBC 3.6 thou/uL (4.0-11.0)
[2017-06-22 04:52] LABS: CALCIUM 8.4 mg/dL (8.5-10.1); CREATININE 1.1 mg/dL (0.6-1.0); MAGNESIUM 2.2 mg/dL (1.8-2.4)
[2017-06-22 05:04] VITALS: BP 127/79
[2017-06-22 07:59] LABS: ABSOLUTE NEUTROPHILS 2.6 thou/uL (1.4-8.2); ATYPICAL LYMPHS 3 %
[2017-06-22 08:00] LABS: PLATELET ESTIMATE DECREASED
[2017-06-22 08:20] VITALS: BP 153/99
[2017-06-22 11:16] VITALS: BP 143/93
[2017-06-22 21:46] VITALS: BP 151/90
[2017-06-23 02:38] LABS: HEMATOCRIT 34.9 % (37.0-47.0); HEMOGLOBIN 11.1 gm/dL (12.0-15.0); MCH 30.5 pg (26.0-34.0); MCV 95.4 fL (80.0-100.0); PLATELET COUNT 111 thou/uL (150-400); RBC 3.65 mil/uL (4.20-5.00)
[2017-06-23 02:58] LABS: CALCIUM 8.5 mg/dL (8.5-10.1); CREATININE 1.2 mg/dL (0.6-1.0); POTASSIUM 3.7 mmol/L (3.5-5.1)
[2017-06-23 04:45] VITALS: BP 140/90
[2017-06-23 07:08] LABS: ABSOLUTE NEUTROPHILS 2.4 thou/uL (1.4-8.2)
[2017-06-23 07:34] VITALS: BP 155/107
[2017-06-23 11:24] VITALS: BP 152/101
[2017-06-23 12:15] VITALS: BP 152/101
[2017-06-23] MEDS ORDERED: SLOW-MAG64 M1 PO (15:04)
[2017-06-23] MEDS ORDERED: METOPROLOL SUCC25 M1 PO (15:04)
[2017-06-23 15:18] VITALS: BP 138/87
[2017-06-23 17:12] VITALS: BP 152/101
[2017-06-24 08:41] VITALS: BP 152/101
== END 2017-06-23 19:00 | disposition home health service (06) | DRG 309 ==
LOC: ER 10:07 → 2N 12:21 → EROBS 12:21 → 2N 14:49
PROVIDERS: Hospitalist; Nurse Practitioner
PROC: B24BZZ4 Ultrasonography of Heart with Aorta, Transesophageal (ICD-10-PCS; principal; 2017-06-20)
DX: I48.92 Unspecified atrial flutter (principal); C90.00 Multiple myeloma not having achieved remission; N39.0 Urinary tract infection, site not specified; E85.4 Organ-limited amyloidosis; E44.1 Mild protein-calorie malnutrition; Z68.1 Body mass index [BMI] 19.9 or less, adult; I35.0 Nonrheumatic aortic (valve) stenosis; I43 Cardiomyopathy in diseases classified elsewhere; I48.91 Unspecified atrial fibrillation; F03.90 Unspecified dementia, unspecified severity, without behavioral disturbance, psychotic disturbance, mood disturbance, and anxiety; D64.9 Anemia, unspecified; N18.9 Chronic kidney disease, unspecified; I12.9 Hypertensive chronic kidney disease with stage 1 through stage 4 chronic kidney disease, or unspecified chronic kidney disease; M13.88 Other specified arthritis, other site; E86.0 Dehydration; Z66 Do not resuscitate; M54.5 Low back pain; I27.20 Pulmonary hypertension, unspecified; E78.00 Pure hypercholesterolemia, unspecified; Z86.73 Personal history of transient ischemic attack (TIA), and cerebral infarction without residual deficits; Z87.891 Personal history of nicotine dependence; Z79.899 Other long term (current) drug therapy; Z87.828 Personal history of other (healed) physical injury and trauma
CPT/HCPCS: 10081

== ENCOUNTER 2017-07-21 09:00 | Inpatient (IN) | payer OTHER ==
[~2017-07-21] VITALS: Ht 162.6 cm; Wt 57.2 kg
--- NOTE | ~2017-07-21 | EKG ---
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 : 1935 Requested By: Loretta Vanegas Order Number: [id number] MD: Nirav Danielle Measurements Intervals [address] Rate: 69 P: -27 PA: 326 QRS: 130 QRSD: 155 T: 10 QT: 451 QTc: 484 Interpretive Statements Sinus rhythm Prolonged PA interval Right bundle branch block Baseline wander in lead(s) V4 Compared to ECG 06/20/2017 11:45:22 First degree AV block now present Ectopic atrial rhythm no longer present Right-axis deviation no longer present Electronically Signed On 07-21-2017 17:11:01 CDT by Nirav Danielle [email or web address] <ELECTRONICALLY SIGNED> By: Nirav Danielle MD 07/21/17 1711 9 9 Nirav Danielle MD /EPI
--- NOTE | ~2017-07-21 | HC ---
[facility] [place] [address] CONSULTATION Name: LUIS DANIEL THOMAS Room #: 453-P ADM IN M.R.#: [id number] Admission: 07/21/17 Attend Phys: Jordan Hein MD Discharge: Date of : 35 Report #: [id number] THIS REPORT FOR: //name// CC: Caitlyn Hein REASON FOR CONSULTATION: Cardiomyopathy, shortness of breath. 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 She has been followed by Dr. Heraclio Pennington and Dr. Michael Brand. She has a recent hospitalization with atrial flutter, which converted to sinus. She reports development of fairly abrupt onset shortness of breath. This occurred predominantly with exertion. She also has a sense that her heart was racing. No fevers, chills or cough. No chest heaviness or pressure. She presented to the Emergency Department, where chest x-ray demonstrated no acute findings. Her proBNP was elevated at 7000. A recent echocardiogram demonstrated severe LVH and mild left ventricular dysfunction with hypokinesis involving the base of the inferior wall, both atria were dilated, mild aortic stenosis was present, as well as bqym-uo-hniacjup mitral insufficiency. There was a small pericardial effusion. Her echocardiographic findings were suggestive of cardiac amyloidosis. She currently is alert and in no distress. ALLERGIES: No known drug allergies are listed. MEDICATIONS: Include Plavix, Effexor XR 37.5 mg daily, potassium 10 mEq daily. She was prescribed on a variety of other medicines that are not listed and this includes beta blockade, Aricept, iron, allopurinol. PAST MEDICAL HISTORY: Medical records have been reviewed, includes a history of multiple myeloma, hypertension, dyslipidemia, dementia, prior stroke, anemia, cataract excision, tonsillectomy, ascending aortic enlargement. SOCIAL HISTORY: She is a former smoker. FAMILY HISTORY: Unremarkable for premature coronary disease. REVIEW OF SYSTEMS: All systems negative except as that noted above. PHYSICAL EXAMINATION: GENERAL: Reveals a pleasant elderly woman in no distress. VITAL SIGNS: Blood pressure is 130/90, heart rate of 87 and regular. She is afebrile, 5 feet 4 inches tall, 126 pounds. HEENT: There are neither xanthelasma, subcutaneous xanthomata, oral mucosal or digital cyanosis or kyphoscoliosis present. CHEST: Clear to auscultation and percussion. CARDIAC: Regular rate and rhythm with normal S1, S2. There is 2/6 systolic [facility] [address] [place] [address] CONSULTATION Name: LUIS DANIEL THOMAS Room #: 453-P [facility] IN [facility]#: [id number] Admission: 07/21/17 Attend Phys: Jordan Hein MD Discharge: Date of : 35 Report #: [id number] murmur at the base. ABDOMEN: Soft and nontender. EXTREMITIES: Without cyanosis, clubbing or edema. Radial pulses are 2+. NEUROLOGIC: She is alert with a nonfocal exam. LABORATORY DATA: Sodium 142, potassium 3.9, creatinine 1.0. ProBNP of 7167. Troponin 0.13. She has never had a normal troponin. White count 3.7; hemoglobin 10; hematocrit 31; platelet count 99,000. IMPRESSION: 1. Brzgu-ol-lupxcij diastolic heart failure. 2. History of atrial flutter, now in sinus. 3. Echocardiographic findings consistent with cardiac amyloidosis; history of multiple myeloma. 4. Hypertension. 5. Dyslipidemia. 6. History of anemia. 7. Mild aortic stenosis. RECOMMENDATIONS: 1. Resume low dose beta blockade. 2. Gentle, careful diuretic therapy. 3. 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 Thank you for asking me to participate in her care. <ELECTRONICALLY SIGNED> By: Dayday Lane MD, FACC 07/28/[address] MD, FACC /nt
--- NOTE | ~2017-07-21 | EKG ---
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
--- NOTE | ~2017-07-21 | HC ---
[facility] [place] [address] CONSULTATION Name: LUIS DANIEL THOMAS Room #: 453-P [facility] IN M.R.#: [id number] Admission: 07/21/17 Attend Phys: Jordan Hein MD Discharge: Date of : 35 Report #: [id number] THIS REPORT FOR: //name// CC: Caitlyn Lane MD [facility] Jordan Hein REASON FOR CONSULTATION: Multiple myeloma and possible amyloid. 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 This was originally diagnosed as an MGUS in 2013. She had a bone marrow later in 08/2013, which found 40% plasma cells with deletion 13q and also 18 in some of the cells. She had some hypercalcemia. In 06/2015, she was thought to have active myeloma and was begun on Velcade and dexamethasone, stopped after one cycle due to concerns about possible cardiac issues with Velcade. Later on, she had been on Revlimid, but it was tolerated very poorly. She has also been having worsening mental status and dementia. She has really been off therapy since about 01/2017. She is thought to be too poor of her performance status to treat since that time. She recently was admitted to the hospital with wyvbh-yb-xmcbmwk diastolic heart failure and we are being consulted at this time. Note that she has had a recent echocardiogram with Dr. Dayday Lane and his group and it appears that supposedly has changes consistent with amyloid, but also has an EF of 50%. At this time, she tells us that she occasionally has intermittent shortness of air when she is up and moving around, but it sounds like it does not happen all the time. No fevers, no chills. No new arm or leg swelling. She lives by herself and is not a very good historian. PAST MEDICAL HISTORY: Also notable for depression, dementia, a history of iron deficiency and received erythropoietin one time at [facility] in 03/2017. Also received iron sucrose x 1 dose, 200 mg in 03/2017. Also has had bilateral lower extremity edema, has a history of chronic kidney disease, atrial flutter with RVR, history of Clostridium difficile, history of hypertension in the past, history of falling, history of thrombocytopenia and weakness. MEDICATIONS: At this time in the hospital currently include spironolactone 25 daily, magnesium chloride 64 mg b.i.d., potassium chloride 10 mEq daily, furosemide 20 mg daily, atorvastatin calcium 20 daily, metoprolol 25 daily, clopidogrel 75 daily, multivitamin with minerals 1 tab daily, venlafaxine XR 37.5 daily, pantoprazole 20 daily, docusate 100 mg b.i.d., MiraLax 17 grams b.i.d., nitroglycerin p.r.n. and Zofran p.r.n. LABORATORY DATA: Lab review this admit includes a BUN of 12, creatinine of 1. Liver functions normal. Recent NT-proBNP 7162. Iron studies in March were low, but that was before the infusion. Coags were normal this admit. [facility] [address] [place] [address] CONSULTATION Name: WILLIAM,LUIS DANIEL Room #: 453-P ADM IN MEwa.#: [id number] Admission: 07/21/17 Attend Phys: Jordan Hein MD Discharge: Date of : 35 Report #: [id number] count 3.7, hemoglobin 10.2 and platelets of 99,000, which usually runs between in this range. Differential, nonacute, ANC 1800. Note that I have mentioned the echocardiogram; it had been done 06/20 of this year. That mentioned that there was severe concentric left ventricular hypertrophy with an LV systolic function mildly decreased, the LVEF of 50% with hypokinesis involving the inferior wall. Left and right atrium were dilated. The impression was mild aortic stenosis with a peak gradient of 30 with a mean of 18, ltzt-gs-vivuuzyg mitral regurgitation. The ascending aorta was dilated at 4.8 cm and the appearance was suggestive of cardiac amyloid. Other imaging studies done recently include a CTA chest PE protocol done on 06/20/2017, in which we did not see any blood clots, but did see cardiomegaly. PHYSICAL EXAMINATION: GENERAL: The patient appears her stated age. VITAL SIGNS: Height is 5 feet 4, which is 162.6 cm. Weight is 126 pounds, which is 57.2 kilograms. Blood pressure is 132/94, O2 sat 96%, respirations 17, pulse 87 and temperature 98.2. MOOD: She is alert and pleasant. NEUROLOGIC: She has evidence of dementia and memory is "not too good. HEENT: Face is symmetric. Oropharynx is clear, except for some food particles as she is eating breakfast. LUNGS: Mostly clear. HEART: Appears regular rate at this time. ABDOMEN: Soft. No masses. LYMPHATIC: No enlarged lymph nodes in the supraclavicular, cervical, axillary or inguinal region. EXTREMITIES: Without clubbing or cyanosis. ASSESSMENT AND PLAN: 1. History of IgG lambda multiple myeloma, not currently on therapy because of poor performance status. 2. Question of amyloid heart. I do not believe the patient would tolerate current therapy, so would suggest medical management at this time. 3. Dementia. Defer to others. 4. Atrial flutter, rate control. Defer to others. 5. History of chronic kidney disease, stable creatinine at this point. 6. History of cerebrovascular accident, stable at this time. Note, she is on Plavix. We will follow with you. 7. History of hyperlipidemia, on statin. <ELECTRONICALLY SIGNED> By: Michael Brand MD 07/25/17 0754 0932 1123 Michael Brand MD /nt
[~2017-07-21 09:00] MED LIST changes: +CENTRUM SILVER1 EAC4 PO; +KLOR-CON 1010 MEQ PO; +SLOW-MAG64 M1 PO
[2017-07-21 10:01] LABS: ABSOLUTE NEUTROPHILS 1.8 thou/uL (1.4-8.2); BASOPHILS 0.8 % (0.0-2.0); EOSINOPHILS 1.5 % (0.0-3.0); HEMATOCRIT 31.5 % (37.0-47.0); HEMOGLOBIN 10.2 gm/dL (12.0-15.0); MCH 31.1 pg (26.0-34.0); MCHC 32.4 g/dL (28.0-37.0); MCV 95.8 fL (80.0-100.0); MONOCYTES 11.1 % (1.0-8.0); PLATELET COUNT 99 thou/uL (150-400); POLYS 48.6 % (36.0-66.0); RBC 3.28 mil/uL (4.20-5.00); RDW 15.3 % (10.5-14.5); WBC 3.7 thou/uL (4.0-11.0)
[2017-07-21 10:14] LABS: INR 1.1; PROTIME 10.9 Seconds (9.3-11.4)
[2017-07-21 10:17] LABS: CALCIUM 9.1 mg/dL (8.5-10.1); POTASSIUM 4.4 mmol/L (3.5-5.1)
[2017-07-21 10:25] LABS: ALBUMIN 2.9 g/dL (3.4-5.0); TOTAL PROTEIN 6.2 g/dL (6.4-8.2); TROPONIN-I 0.09 ng/mL (<0.06)
[2017-07-21] MEDS ORDERED: PLAVIX 75 MG TA75 M1 PO (11:05)
[2017-07-21 11:07] LABS: URINE BILIRUBIN NEGATIVE (Negative); URINE BLOOD NEGATIVE (Negative); URINE CLARITY CLEAR; URINE COLOR YELLOW; URINE GLUCOSE-RANDOM* NEGATIVE (Negative); URINE KETONES NEGATIVE (Negative); URINE LEUKOCYTES-REFLEX NEGATIVE (Negative); URINE NITRITE-REFLEX NEGATIVE (Negative); URINE PROTEIN (DIPSTICK) TRACE (Negative); URINE SPECIFIC GRAVITY 1.025 (1.005-1.035); URINE UROBILINOGEN 0.2 E.U./dl (0.2-1.0)
[2017-07-21 13:31] VITALS: BP 106/73
[2017-07-21 13:58] LABS: CHOLESTEROL 174 mg/dL (<200); HDL CHOLESTEROL 64 mg/dL (>40); LDL CHOLESTEROL 95 mg/dL (<100); TC:HDL 2.7 Ratio (Not establshd); TRIGLYCERIDE 79 mg/dL (<150); VLDL 16 mg/dL (<40)
[2017-07-21 18:48] VITALS: BP 110/71
[2017-07-21 19:09] VITALS: BP 110/71
[2017-07-22 00:03] VITALS: BP 135/86
[2017-07-22 01:48] LABS: CALCIUM 8.5 mg/dL (8.5-10.1); MAGNESIUM 1.7 mg/dL (1.8-2.4); POTASSIUM 3.9 mmol/L (3.5-5.1); TROPONIN-I 0.13 ng/mL (<0.06)
[2017-07-22 04:31] VITALS: BP 107/69
[2017-07-22 07:45] VITALS: BP 132/94
[2017-07-22 14:58] VITALS: BP 117/87
[2017-07-22 19:16] VITALS: BP 122/86
[2017-07-23 03:53] VITALS: BP 137/87
[2017-07-23 07:31] LABS: HEMATOCRIT 32.1 % (37.0-47.0); HEMOGLOBIN 10.5 gm/dL (12.0-15.0); MCHC 32.6 g/dL (28.0-37.0); MCV 95.4 fL (80.0-100.0); PLATELET COUNT 112 thou/uL (150-400); RBC 3.37 mil/uL (4.20-5.00); RDW 14.7 % (10.5-14.5); WBC 3.4 thou/uL (4.0-11.0)
[2017-07-23 07:41] LABS: CALCIUM 8.6 mg/dL (8.5-10.1); POTASSIUM 3.6 mmol/L (3.5-5.1)
[2017-07-23 08:00] VITALS: BP 132/82
[2017-07-23 08:42] LABS: ABSOLUTE NEUTROPHILS 1.6 thou/uL (1.4-8.2); ANISOCYTOSIS SLIGHT; ATYPICAL LYMPHS 3 %; POIKILOCYTOSIS SLIGHT
[2017-07-23 16:00] VITALS: BP 137/81
[2017-07-23 20:04] VITALS: BP 143/77
[2017-07-24 03:45] VITALS: BP 150/101
[2017-07-24 05:51] VITALS: BP 147/90
[2017-07-24 07:47] VITALS: BP 141/91
[2017-07-24 16:33] VITALS: BP 119/78
[2017-07-24 19:37] VITALS: BP 139/99
[2017-07-25 04:20] VITALS: BP 128/81
[2017-07-25 08:04] VITALS: BP 145/96
[2017-07-25 16:24] VITALS: BP 147/91
[2017-07-25 16:29] LABS: BASOPHILS 0.4 % (0.0-2.0); HEMATOCRIT 42.1 % (37.0-47.0); HEMOGLOBIN 13.5 gm/dL (12.0-15.0); LYMPHOCYTES 9.3 % (24.0-44.0); MCH 30.7 pg (26.0-34.0); MCHC 32.2 g/dL (28.0-37.0); MCV 95.4 fL (80.0-100.0); MONOCYTES 6.9 % (1.0-8.0); PLATELET COUNT 144 thou/uL (150-400); POLYS 83.4 % (36.0-66.0); RBC 4.41 mil/uL (4.20-5.00); RDW 14.9 % (10.5-14.5); WBC 7.2 thou/uL (4.0-11.0)
[2017-07-25 16:49] LABS: ALBUMIN 3.8 g/dL (3.4-5.0); CREATININE 1.4 mg/dL (0.6-1.0); MAGNESIUM 1.9 mg/dL (1.8-2.4); POTASSIUM 5.7 mmol/L (3.5-5.1); TOTAL BILIRUBIN 1.7 mg/dL (<0.1-1.0); TOTAL PROTEIN 7.9 g/dL (6.4-8.2)
[2017-07-25 19:48] VITALS: BP 121/91
[2017-07-26 03:12] VITALS: BP 106/67
[2017-07-26 05:42] LABS: HEMATOCRIT 39.7 % (37.0-47.0); HEMOGLOBIN 12.9 gm/dL (12.0-15.0); MCH 30.8 pg (26.0-34.0); MCHC 32.4 g/dL (28.0-37.0); PLATELET COUNT 125 thou/uL (150-400); RBC 4.18 mil/uL (4.20-5.00); RDW 14.9 % (10.5-14.5); WBC 7.1 thou/uL (4.0-11.0)
[2017-07-26 05:47] LABS: CALCIUM 9.7 mg/dL (8.5-10.1); CREATININE 1.6 mg/dL (0.6-1.0)
[2017-07-26 05:52] LABS: POTASSIUM 4.7 mmol/L (3.5-5.1)
[2017-07-26 09:43] LABS: ABSOLUTE NEUTROPHILS 4.7 thou/uL (1.4-8.2); ANISOCYTOSIS 1+
[2017-07-26 16:00] VITALS: BP 107/73
[2017-07-26 20:03] VITALS: BP 91/61
[2017-07-27 03:18] VITALS: BP 112/84
[2017-07-27 05:14] LABS: ABSOLUTE NEUTROPHILS 5.1 thou/uL (1.4-8.2); BASOPHILS 0.5 % (0.0-2.0); EOSINOPHILS 0.3 % (0.0-3.0); HEMATOCRIT 38.6 % (37.0-47.0); HEMOGLOBIN 12.5 gm/dL (12.0-15.0); LYMPHOCYTES 16.8 % (24.0-44.0); MCH 30.7 pg (26.0-34.0); MCHC 32.4 g/dL (28.0-37.0); MCV 94.9 fL (80.0-100.0); MONOCYTES 11.3 % (1.0-8.0); PLATELET COUNT 106 thou/uL (150-400); POLYS 71.1 % (36.0-66.0); RBC 4.07 mil/uL (4.20-5.00); RDW 14.6 % (10.5-14.5); WBC 7.2 thou/uL (4.0-11.0)
[2017-07-27 05:39] LABS: CALCIUM 9.7 mg/dL (8.5-10.1); CREATININE 1.4 mg/dL (0.6-1.0); POTASSIUM 4.5 mmol/L (3.5-5.1)
[2017-07-27 08:00] VITALS: BP 104/62
[2017-07-27 16:00] VITALS: BP 109/76
[2017-07-27 19:27] VITALS: BP 123/86
[2017-07-28 03:43] VITALS: BP 122/90
[2017-07-28 06:57] LABS: HEMATOCRIT 37.3 % (37.0-47.0); HEMOGLOBIN 12.3 gm/dL (12.0-15.0); MCH 30.9 pg (26.0-34.0); MCHC 32.9 g/dL (28.0-37.0); MCV 93.8 fL (80.0-100.0); RBC 3.98 mil/uL (4.20-5.00); RDW 14.5 % (10.5-14.5); WBC 6.6 thou/uL (4.0-11.0)
[2017-07-28 07:02] LABS: CALCIUM 9.6 mg/dL (8.5-10.1); CREATININE 1.1 mg/dL (0.6-1.0); POTASSIUM 4.2 mmol/L (3.5-5.1)
[2017-07-28 08:35] VITALS: BP 100/75
[2017-07-28 08:56] LABS: ABSOLUTE NEUTROPHILS 4.2 thou/uL (1.4-8.2); NUCLEATED RBCS 1 /100WBC; PLATELET COUNT 90 thou/uL (150-400); PLATELET ESTIMATE SLIGHTLY DECREASED
[2017-07-28 15:40] VITALS: BP 91/63
[2017-07-28 19:18] VITALS: BP 111/81
[2017-07-29 04:06] VITALS: BP 103/69
[2017-07-29 07:31] VITALS: BP 103/68
[2017-07-29 16:33] VITALS: BP 106/71
[2017-07-29 19:43] VITALS: BP 77/59
[2017-07-30 03:54] VITALS: BP 99/65
[2017-07-30 08:00] VITALS: BP 97/68
[2017-07-30 12:32] VITALS: BP 111/78
[2017-07-30 15:56] VITALS: BP 106/78
[2017-07-30 16:00] VITALS: BP 111/78
[2017-07-30 16:33] LABS: MCHC 32.2 g/dL (28.0-37.0); RDW 14.5 % (10.5-14.5)
[2017-07-30 16:34] LABS: HEMATOCRIT 38.4 % (37.0-47.0); HEMOGLOBIN 12.4 gm/dL (12.0-15.0); MCH 30.7 pg (26.0-34.0); MCV 95.3 fL (80.0-100.0); RBC 4.03 mil/uL (4.20-5.00); WBC 8.7 thou/uL (4.0-11.0)
[2017-07-30 16:48] LABS: ALBUMIN 2.7 g/dL (3.4-5.0); CALCIUM 9.5 mg/dL (8.5-10.1); MAGNESIUM 1.8 mg/dL (1.8-2.4); POTASSIUM 4.5 mmol/L (3.5-5.1); TOTAL BILIRUBIN 0.5 mg/dL (<0.1-1.0); TOTAL PROTEIN 6.3 g/dL (6.4-8.2)
[2017-07-30] MEDS ORDERED: ALLOPURINOL 10100 M1 PO (17:44)
== END 2017-07-30 17:45 | DRG 682 ==
LOC: ER 09:00 → 4W 11:07 → EROBS 11:07 → 4W 19:09
PROVIDERS: Hospitalist; Internal Medicine; Nurse Practitioner; Physician Assistant
DX: N17.9 Acute kidney failure, unspecified (principal); I50.33 Acute on chronic diastolic (congestive) heart failure; E43 Unspecified severe protein-calorie malnutrition; I13.0 Hypertensive heart and chronic kidney disease with heart failure and stage 1 through stage 4 chronic kidney disease, or unspecified chronic kidney disease; I48.92 Unspecified atrial flutter; E78.5 Hyperlipidemia, unspecified; F03.90 Unspecified dementia, unspecified severity, without behavioral disturbance, psychotic disturbance, mood disturbance, and anxiety; I35.0 Nonrheumatic aortic (valve) stenosis; F32.9 Major depressive disorder, single episode, unspecified; N18.9 Chronic kidney disease, unspecified; I27.20 Pulmonary hypertension, unspecified; Z66 Do not resuscitate; E78.00 Pure hypercholesterolemia, unspecified; Z60.2 Problems related to living alone; M62.84 Sarcopenia; M19.90 Unspecified osteoarthritis, unspecified site; E86.0 Dehydration; F41.9 Anxiety disorder, unspecified; D75.9 Disease of blood and blood-forming organs, unspecified; Z85.79 Personal history of other malignant neoplasms of lymphoid, hematopoietic and related tissues; Z79.899 Other long term (current) drug therapy; Z79.02 Long term (current) use of antithrombotics/antiplatelets; Z86.73 Personal history of transient ischemic attack (TIA), and cerebral infarction without residual deficits; Z98.42 Cataract extraction status, left eye; Z98.41 Cataract extraction status, right eye; Z87.891 Personal history of nicotine dependence; Z91.81 History of falling; Z68.21 Body mass index [BMI] 21.0-21.9, adult
CPT/HCPCS: 10045

== ENCOUNTER 2017-10-21 16:26 | Emergency (ER) | payer OTHER ==
[~2017-10-21] VITALS: Ht 162.6 cm; Wt 52.2 kg
--- NOTE | ~2017-10-21 | EKG ---
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 : 1935 Requested By: Loretta Vanegas Order Number: [id number] MD: Dayday Lane Measurements Intervals [place] Rate: 85 P: 191 SD: 249 QRS: 124 QRSD: 153 T: 6 QT: 422 QTc: 502 Interpretive Statements Sinus or ectopic atrial rhythm Prolonged SD interval Right bundle branch block Compared to ECG 07/25/2017 15:56:07 Ectopic atrial rhythm now present Electronically Signed On 10-22-2017 8:18:[address] [email or web address] <ELECTRONICALLY SIGNED> By: Dayday Lane MD, [facility] 10/22/[address] MD, [facility] /EPI
[2017-10-21] MEDS ORDERED: LIDOCAINE PAIN1 EACH TOP (17:51)
[2017-10-21] MEDS ORDERED: ULTRAM 50MG TAB50 MG PO (17:51)
== END 2017-10-21 18:17 | disposition home or self-care (01) ==
LOC: ER 16:26
DX: S20.211A Contusion of right front wall of thorax, initial encounter (principal); S80.02XA Contusion of left knee, initial encounter; Z86.73 Personal history of transient ischemic attack (TIA), and cerebral infarction without residual deficits; Z90.89 Acquired absence of other organs; W01.198A Fall on same level from slipping, tripping and stumbling with subsequent striking against other object, initial encounter; Y92.009 Unspecified place in unspecified non-institutional (private) residence as the place of occurrence of the external cause; Y93.89 Activity, other specified; Y99.8 Other external cause status

== ENCOUNTER 2017-10-29 10:27 | Inpatient (IN) | payer OTHER ==
[~2017-10-29] VITALS: Ht 162.6 cm; Wt 48.7 kg
--- NOTE | ~2017-10-29 | HC ---
[facility] [place] [address] CONSULTATION Name: LUIS DANIEL THOMAS Room #: 203-P [facility] IN M.R.#: [id number] Admission: 10/29/17 Attend Phys: Manfred Reed MD Discharge: Date of : 35 Report #: [id number] THIS REPORT FOR: //name// CC: Caitlyn Reed DATE OF SERVICE: 10/29/2017 REASON FOR CONSULTATION: Elevated troponin. 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 Her last echocardiogram demonstrated severe LVH and mild aortic stenosis. There was a small pericardial effusion and echocardiographic findings suggestive of amyloidosis. She now presents with poor appetite and a nonsyncopal fall with chest wall bruising and contusion. She has upper chest wall positional discomfort. She denies chest heaviness or pressure. No recent heart failure symptoms including orthopnea, paroxysmal nocturnal dyspnea, or lower extremity edema. She continues to live independently with the help of her family. ALLERGIES: No known drug allergies. MEDICATIONS: Potassium 10 mEq twice daily, Plavix 75 mg daily, Effexor XR 75 mg daily, Slow-Mag. PAST MEDICAL HISTORY: Medical records have been reviewed and include a history of multiple myeloma, dementia, spinal stenosis, prior stroke, paroxysmal atrial dysrhythmias, anemia, tonsillectomy, cataract excision, ascending aortic enlargement. SOCIAL HISTORY: She is not a smoker or drinker. She is a former smoker. FAMILY HISTORY: Unremarkable for premature coronary artery disease. REVIEW OF SYSTEMS: All systems negative except as that noted above. PHYSICAL EXAMINATION: GENERAL: Reveals a frail elderly woman who is in no distress. VITAL SIGNS: Blood pressure is 95/68, heart rate of 96 and regular. She is afebrile, 5 feet 4 inches tall, 111 pounds. HEENT: There are neither xanthelasma, subcutaneous xanthomata, oral mucosal or digital cyanosis or kyphoscoliosis present. CHEST: Clear to auscultation and percussion. There are scattered ecchymoses over her anterior chest and right breast. There is exquisite tenderness to palpation of the anterior chest wall. [facility] [address] [place] [address] CONSULTATION Name: LUIS DANIEL THOMAS Room #: 203-P [facility] IN [facility]#: [id number] Admission: 10/29/17 Attend Phys: Manfred Reed MD Discharge: Date of : 35 Report #: [id number] CARDIOVASCULAR: There is a regular rate and rhythm with a 2/6 systolic murmur at the left sternal border. ABDOMEN: Soft and nontender. EXTREMITIES: Without cyanosis, clubbing or edema. Radial pulses are 2+. NEUROLOGIC: She is alert with a nonfocal exam. LABORATORY DATA: Sodium is 139, potassium 4.5, creatinine 1.1, troponin 0.33, 0.40. She has had 6 troponins since June, none of them have been normal. ProBNP of 28,000. White count 6.2, hemoglobin 13, hematocrit 42, platelet count 129. Chest x-ray demonstrates no acute cardiopulmonary process. EKG, sinus rhythm with first degree AV block, left bundle branch block. IMPRESSION: 1. Chronic diastolic heart failure. 2. Chronically elevated troponin, nondiagnostic range. 3. History of paroxysmal atrial dysrhythmias. 4. Probable cardiac amyloidosis with typical echocardiographic findings; history of myeloma. Not on therapy. 5. Nonsyncopal fall with chest wall contusion and bruising, ongoing chest wall pain. 6. Hypertension. 7. Dyslipidemia. 8. History of anemia. 9. Mild aortic stenosis. RECOMMENDATIONS: 1. At this point, no further cardiovascular testing is needed. Generally, cardiac amyloidosis is associated with a poor prognosis. 2. Chronically elevated troponin in the setting of cardiac amyloid would be anticipated or at least not unexpected. <ELECTRONICALLY SIGNED> By: Dayday Lane MD, FACC 10/31/[address] MD, FACC /nt
--- NOTE | ~2017-10-29 | EKG ---
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 : 1935 Requested By: John Gandhi Order Number: [id number] MD: Dayday Lane Measurements Intervals [place] Rate: 91 P: -88 RI: 244 QRS: 132 QRSD: 144 T: 11 QT: 393 QTc: 484 Interpretive Statements Sinus or ectopic atrial rhythm Prolonged RI interval Right bundle branch block Compared to ECG 10/21/2017 16:28:13 No significant changes Electronically Signed On 10-31-2017 8:20:[address] [email or web address] <ELECTRONICALLY SIGNED> By: Dayday Lane MD, [facility] 10/31/[address] MD, [facility] /EPI
[~2017-10-29 10:27] MED LIST changes: +LIDOCAINE PAIN1 EACH TOP; +ULTRAM 50MG TAB50 MG PO
[2017-10-29 10:28] VITALS: BP 104/79
[2017-10-29 10:52] LABS: HEMOGLOBIN 13.8 gm/dL (12.0-15.0); MCH 31.6 pg (26.0-34.0); MCHC 32.9 g/dL (28.0-37.0); MCV 96.2 fL (80.0-100.0); RBC 4.37 mil/uL (4.20-5.00); WBC 6.2 thou/uL (4.0-11.0)
[2017-10-29 11:20] LABS: URINE BILIRUBIN NEGATIVE (Negative); URINE BLOOD NEGATIVE (Negative); URINE CLARITY CLEAR; URINE COLOR YELLOW; URINE GLUCOSE-RANDOM* NEGATIVE (Negative); URINE KETONES NEGATIVE (Negative); URINE LEUKOCYTES-REFLEX NEGATIVE (Negative); URINE NITRITE-REFLEX NEGATIVE (Negative); URINE PROTEIN (DIPSTICK) 1+ (Negative); URINE SPECIFIC GRAVITY 1.025 (1.005-1.035); URINE UROBILINOGEN 0.2 E.U./dl (0.2-1.0)
[2017-10-29 11:23] LABS: CALCIUM 9.3 mg/dL (8.5-10.1); CREATININE 1.1 mg/dL (0.6-1.0); POTASSIUM 4.5 mmol/L (3.5-5.1)
[2017-10-29 11:26] LABS: ABSOLUTE NEUTROPHILS 3.7 thou/uL (1.4-8.2); NUCLEATED RBCS 1 /100WBC; PLATELET COUNT 129 thou/uL (150-400); PLATELET ESTIMATE NORMAL
[2017-10-29 11:28] LABS: AMORPHOUS URATES Moderate /LPF (None Seen); BACTERIA-REFLEX 1-9 Few /HPF (None Seen); CASTS None Seen /LPF (None Seen); SQUAMOUS 0-3 Few /LPF (0-3); URINE RBC None Seen /HPF (0-2); URINE WBC-REFLEX None Seen /HPF (0-5)
[2017-10-29 11:32] LABS: TROPONIN-I 0.4 ng/mL (<0.06)
[2017-10-29 13:41] VITALS: BP 102/75
[2017-10-29 14:22] VITALS: BP 102/75
[2017-10-29 14:43] VITALS: BP 95/68
[2017-10-30 04:59] LABS: CALCIUM 8.5 mg/dL (8.5-10.1); CREATININE 1.1 mg/dL (0.6-1.0); POTASSIUM 3.8 mmol/L (3.5-5.1); TROPONIN-I 0.28 ng/mL (<0.06)
[2017-10-30 05:05] LABS: HEMATOCRIT 39.1 % (37.0-47.0); HEMOGLOBIN 12.7 gm/dL (12.0-15.0); MCH 31.3 pg (26.0-34.0); MCHC 32.4 g/dL (28.0-37.0); MCV 96.6 fL (80.0-100.0); RBC 4.05 mil/uL (4.20-5.00); RDW 13.5 % (10.5-14.5); WBC 4.9 thou/uL (4.0-11.0)
[2017-10-30 05:10] VITALS: BP 117/76
[2017-10-30 07:30] VITALS: BP 119/89
[2017-10-30 11:30] VITALS: BP 121/90
[2017-10-30 15:25] VITALS: BP 126/89
[2017-10-30 19:08] VITALS: BP 113/81
[2017-10-31 03:50] VITALS: BP 113/79
[2017-10-31 07:20] VITALS: BP 119/84
[2017-10-31 11:35] VITALS: BP 120/89
== END 2017-10-31 16:15 | DRG 947 ==
LOC: ER 10:27 → EROBS 12:12 → 2N 12:12
PROVIDERS: Hospitalist; Physician Assistant
DX: R53.1 Weakness (principal); E43 Unspecified severe protein-calorie malnutrition; E85.4 Organ-limited amyloidosis; I50.32 Chronic diastolic (congestive) heart failure; I43 Cardiomyopathy in diseases classified elsewhere; C90.00 Multiple myeloma not having achieved remission; Z68.1 Body mass index [BMI] 19.9 or less, adult; E78.5 Hyperlipidemia, unspecified; I35.0 Nonrheumatic aortic (valve) stenosis; E78.00 Pure hypercholesterolemia, unspecified; M10.9 Gout, unspecified; F03.90 Unspecified dementia, unspecified severity, without behavioral disturbance, psychotic disturbance, mood disturbance, and anxiety; Z86.73 Personal history of transient ischemic attack (TIA), and cerebral infarction without residual deficits; Z98.49 Cataract extraction status, unspecified eye; Z82.49 Family history of ischemic heart disease and other diseases of the circulatory system; Z87.891 Personal history of nicotine dependence; W18.39XA Other fall on same level, initial encounter; Y93.89 Activity, other specified; Y92.098 Other place in other non-institutional residence as the place of occurrence of the external cause; Y99.8 Other external cause status; I11.0 Hypertensive heart disease with heart failure; R07.9 Chest pain, unspecified
CPT/HCPCS: 10081